=== PATIENT | male | born 1945 | race Caucasian/White ===

== ENCOUNTER 2022-04-26 08:24 | Outpatient (CLI) | payer MEDICARE, SELFPAY ==
--- NOTE | 2022-04-26 09:45 | W.ANESCHARGE ---
Anesthesia Charges Start Date/Time Anesthesia Start Date: 04/26/22 Anesthesia Start Time: 09:21 Stop Date/Time Anesthesia Stop Date: 04/26/22 Anesthesia Stop Time: 10:01 Summary Emergency: No Extremes of Age: Over 70-CPT [id number]
--- NOTE | 2022-04-26 10:03 | W.ANESCHARGE ---
Anesthesia Charges Start Date/Time Anesthesia Start Date: 04/26/22 Anesthesia Start Time: 09:21 Stop Date/Time Anesthesia Stop Date: 04/26/22 Anesthesia Stop Time: 10:01 Summary Emergency: No
== END 2022-04-26 08:25 | disposition home or self-care (01) ==
PROVIDERS: PCP Family Medicine; Visit Provider Internal Medicine Gastroenterology
DX: D50.9 Iron deficiency anemia, unspecified (principal); R10.13 Epigastric pain; K44.9 Diaphragmatic hernia without obstruction or gangrene; K31.89 Other diseases of stomach and duodenum; K21.9 Gastro-esophageal reflux disease without esophagitis; K22.89 Other specified disease of esophagus
CPT/HCPCS: 00813; 43239; 45378; 88305; 99100; J2704; J3490

== ENCOUNTER 2022-09-29 11:31 | Outpatient (CLI) | payer MEDICARE, SELFPAY ==
[2022-09-29 11:37] VITALS: BP 148/82; PULSE 79; RESP 16; O2SAT 95
[2022-09-29] MEDS: TETRACAINE 0.5% OPHTH 1 DROP EYE-RIGHT ×2 (11:57→12:00)
[2022-09-29] MEDS: BRIMONIDINE TARTRATE 0.2% OPHTH 1 DROP EYE-RIGHT ×2 (11:57→12:53)
--- NOTE | 2022-09-29 12:54 | P.PCN_ITS ---
Procedure Note Date Seen: 09/29/22 Will [facility] bill your pro fee for this procedure?: No Pre-op diagnosis: opacified lens capsule od Post-op diagnosis: same Procedure: yag pc od Procedure Description: dilated topical cruciform cpasulotomy 47@2.4 mj no complications
== END 2022-09-29 12:54 | disposition home or self-care (01) ==
LOC: EYE PRC 11:32
PROVIDERS: PCP Family Medicine; Visit Provider Ophthalmology
DX: H26.9 Unspecified cataract (principal)
CPT/HCPCS: 66821; A9270

== ENCOUNTER 2024-08-27 00:14 | Emergency (ER) | payer MEDICARE, SELFPAY ==
--- OUTSIDE RECORDS SUMMARY | 2024-08-27 00:17 | XMS_ITS | Clinical Summary ---
Author Organization [facility] Address [address] [place] [address] Care Team Providers Care Plaster Model And Mold Maker Name Role Phone Votel, Rohit Acosta MD Primary Care Provider + Prieto Larsen MD Unavailable Jose Israel MD Unavailable [phone] Allergies Active Allergy Reactions Criticality Noted Date Comments Lisinopril Throat Swelling/Closing 07/08/2008 Medications ASPIRIN 81 MG TAB, DELAYED RELEASE take 1 tablet (81 mg) by oral route once daily 0 007 Active Geriatric Multivitamins-Min (MULTI-VIT 55 PLUS) Tab Take by mouth. 0 011 Active medication order composer Super joint support, takes 2 capsules twice daily 0 021 Active medication order composer Revolution-D advanced vitamin D with cofactors, Takes 1 capsule twice daily 0 021 Active medication order composer Acid relief 360, takes 2 capsules once per day 0 021 Active medication order composer Berberibe XTS support for glucose levels and cardiovascular health, takes 1 capsule in the am and 1 capsule in the pm. 0 021 Active blood-glucose meterIndications:Predi abetes Dispense meter covered by pt ins. R73.03. Test 2-3 times per week. 1 Kit 023 Active CPAPIndications:WALLACE (obstructive sleep apnea) CPAP machine for home use at pressure: 6-16 cmw , Heated humidifier x 1 q 5 yr, Humidifier chamber x 1 q 6 mo, Full face mask x1 q 3mos, with cushion x 1 q mo, Heated tubing x 1 q 3 mo, Headgear x 1 q 6 mo, Filters: Disposable x 2 q mo non-disposable filters x1 q 6mo, Length of Need: 99 months, Frequency of use: Daily 1 Each 024 Active fluticasone (50 mcg per actuation) nasal solution (FLONASE)Indications:E TD (Eustachian tube dysfunction), bilateral Inhale 1 Wilson into affected nostril(s) two times daily. 16 g 2 024 Active allopurinoL (ZYLOPRIM) 300 mg tabletIndications:Gout , unspecified cause, unspecified chronicity, unspecified site Take 1 Tablet (300 mg) by mouth once daily. 90 Tablet 3 025 Active blood sugar diagnostic (Blood Glucose Test) stripIndications:Predi abetes Dispense item covered by pt ins. R73.03 Test 2-3 times per week. 100 Each 025 Active gemfibroziL (LOPID) 600 mg tabletIndications:Pure hypercholesterolemia Take 1 Tablet (600 mg) by mouth two times daily before meals. 180 Tablet 025 Active lancets (Microlet Lancet)Indications:Pre diabetes TEST 2-3 TIMES PER WEEK. 100 Each 025 Active metoprolol succinate (TOPROL XL) 100 mg Sustained-Release tabletIndications:Esse ntial hypertension Take 1 Tablet (100 mg) by mouth once daily. 90 Tablet 025 Active NIFEdipine ER (ADALAT CC) 60 mg extended-release tabletIndications:Esse ntial hypertension TAKE 1 TABLET BY MOUTH DAILY BEFORE A MEAL. 90 Tablet 025 Active hydroCHLOROthiazide 25 mg tabletIndications:Esse ntial hypertension Take 1 Tablet (25 mg) by mouth once daily. 90 Tablet 3 025 Active hydroCHLOROthiazide (HCTZ) 25 mg tabletIndications:Esse ntial hypertension Take 1 Tablet (25 mg) by mouth once daily. 90 Tablet 3 024 2024 Disconti nued(Reo rder (E-cance l not sent)) Active Problems Problem Noted Date Diagnosed Date Skin cancer 05/23/2023 Overview (05/23/2023): 02/03/2023 Posterior base of neck, Basal cell carcinoma, superficial and nodular types: Excised 03/08/2023 Mauricio Pulmonary nodule, repeate Ct Chest in Mar 2021 1 Prostate cancer 05/10/2018 Morbid obesity with BMI of 45.0-49.9, adult 10/2017 Hydrocele in adult 05/10/2018 Prediabetes 04/24/2015 Hydrocele, left 05/07/2014 CTS (carpal tunnel syndrome) 12/13/2012 GERD (gastroesophageal reflux disease) 3 Overview (06/13/2012): EGD 06/2012 severe reflux with scarring Colon polyp 04/08/2011 Overview (04/26/2022): Colonoscopy 04/2011 hyperplastic polyp repeat in 10 years Colonoscopy 04/2022 normal, repeat in 10 years, propofol Gout, unspecified 05/21/2009 Unspecified essential hypertension 04/05/2007 Pure hypercholesterolemia 04/05/2007 Resolved Problems Problem Noted Date Diagnosed Date Resolved Date Depression, recurrent 01/28/20222022 Psoriatic arthritis 11/30/2012 08/08/19 22 Encounters Date Type Department Care Team Description 08/24/2024 Nurse Triage [facility] [address] [place] [address] Rohit Stern MD High Blood Pressure 08/22/2024 11:00 AM CDT Nurse/Clinic Staff Only [facility] [address] [place] [address] Blood Pressure 08/22/2024 Telephone [facility] [address] [place] [address] Rohit Stern MD Blood Pressure 08/22/2024 Travel 08/07/2024 Telephone [facility] [address] [place] [address] Rohit Stern MD Medication Management 07/18/2024 9:35 AM WHEEL INSTALLER Office Visit [facility] [address] [facility] [place] [address] Votel, Rohit Acosta MD Medication Management (Wants labs, diuretic does not work for him, wants to discuss wegovy) 07/18/2024 Travel 07/13/2024 Travel 07/13/2024 Refill [facility] [address] [facility] [place] [address] Votel, Rohit Acosta MD Refill Request (Microlet Lancet) from Last 3 Months Immunizations Immunization Administration Dates Next Due COVID-19 vaccine ([employer] 30mcg/0.3mL) MD STEFANOV 04/01/2021,08/19/2020,07/29/2020 Influenza A (H1N1), Inactiva nahid (Age >=3 Years) 06/05/2009 Influenza Virus, Unspecified 02/04/2011 Influenza, High-dose Inactivated 04/26/2016,04/06 Influenza, IIV3 (Age >=3 years) 03/06/20 13,02/24/2012,03/06/2010,2008 Influenza, IIV4 04/22/2014,02/14/2013 Influenza, Inactivated AIIV4 (Age 65+ Years) Preserv Free 02/27/2023,03/21/2022,03/03/2021,2019 Influenza, Inactivated IIV3 (Age 65+ Years) Preserv Free 01/26/2024,04/03/2019,05/10/2018,2016 Pneumococcal Poly,23-Valent (Pneumovax) 03/15/2016,04/24/2015 Pneumococcal conj 13-Valent (Prevnar 13) 04/22/2014 Td (Age >=7 Years) 03/30/2006 Tdap 03/28/2012 Zoster (Zostavax-ZVL, live) 04/24/2013 Family History Medical History Relation Name Comments Other Father age 89, jane d a swallowing problem Heart Disease Maternal Grandmother i n her 90's Heart Disease Mother Relation Name Status Comments Father Maternal Grandmother Mother Alive Social History Tobacco Use Types Packs/Day Years Used Date Smoking Tobacco: Former Cigarettes 2 20 1 968 - 06/06/1987 Smokeless Tobacco: Never Tobacco Cessation:Counseling Given: Yes Alcohol Use Standard Drinks/Week Comments Yes 6.7 (1 standard drink = 0.6 oz p ure alcohol) occ PHQ-2 Answer Date Recorded PHQ-2 TOTAL SCORE 0 07/18/2024 Social Connections Answer Date Recorded Do you often feel lonely or isolated from those around you? 0 07/13/2024 Financial Resource Strain Answer Date R ecorded Difficulty of Paying Living Expenses 3 07/13/2024 Difficulty of Paying Living Expenses Not on file 07/13/2024 Food Insecurity Answer Date Recorded Do you worry your food will run out before you are able to buy more? 1 07/13/2024 Transportation Needs Answer Date Record ed Does lack of transportation keep you from medica l appointments? 1 07/13/2024 Does lack of transportation keep you from work, meetings or getting things that you need? 1 07/13/2024 Housing Stability Answer Date Recorded What is your housing situation today? 1 07/13/2024 Utilities Answer Date Recorded Do you have trouble paying f or utilities (for example, heat, electricity, water, phone)? 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 Not on file Not on file Obstetrics History Last Filed Vital Signs Vital Sign Reading Time Taken Comments Blood Pressure 142/74 08/22/2024 11:18 AM CDT Ma nual BP Pulse 72 08/22/2024 11:15 AM CDT Temperature 36.8 C (98.2 F) 09/30/2022 3:58 PM CDT Respiratory Rate 20 02/02/2021 7:58 AM CDT Oxygen Saturation 95% 08/22/2024 11:15 AM CDT Inhaled Oxygen Concentration - - Weight 151.7 kg (334 lb 8 oz) 07/18/2024 9:49 AM WHEEL INSTALLER Height 181.8 cm (5' 11.58) 07/18/2024 9:[address] Body Mass Index 45.91 07/18/2024 9:49 AM WHEEL INSTALLER Plan of Treatment Upcoming Encounters Date Type Department Care Team (Late st Contact Info) Description 10/24/2024 10:00 AM CDT Orders Only [facility] [address] [place] [address] Lab, [facility] Maintenance Due Date Last Done Comments Zoster (shingles) series for age 50+ (1 of 2) 06/19/2013 04/24/2013 Tetanus booster 03/28/2022 03/28/2012, 03/30/2006 RSV vaccine for adults or (1 - 1-dose 75+ series) 2022 COVID-19 vaccine series ( season) 2024 04/01/2021, 08/19/2020, 07/29/2020 Medicare Wellness for age 65+ 02/02/2025, 09/30/2022, 08/05/2021, Additional history exists BMI (ht and wt on same day) for age 18+ 07/18/2025 07/18/2024, 10/11/2023, 08/23/2023, Additional history exists Depression screening for age 12+ 07/18/2025 07/18/2024, 02/02/2024, 09/30/2022, Additional history exists Tdap Completed 03/28/2012 Pneumococcal series for age 50+ Completed 03/15/2016, 04/24/2015, 04/22/2014 Hepatitis C screening for ag e 18-79 Completed 04/26/2016, 10/25/2012 Influenza Vaccine Completed 01/26/2024, , 03/21/2022, Additional history exists Procedures Procedure Name Priority Date/Time Associated Diagnosis Comments CBC WITH AUTO DIFFERENTIAL Routine 07/18/2024 11:02 AM WHEEL INSTALLER Essential hypertension BASIC METABOLIC PANEL Routine 07/18/2024 11:02 AM WHEEL INSTALLER Essential hypertension PSA TOTAL Routine 07/18/2024 11:02 AM WHEEL INSTALLER Malignant neoplasm of prostate (HC) HEMOGLOBIN A1C MONITORING (POCT) Routine 07/18/2024 11:01 AM WHEEL INSTALLER Prediabetes ANTI HCV Routine 04/26/2016 10:22 AM WHEEL INSTALLER Need for hepatitis C screening test from Last 3 Months or Most Recently Relevant to Health Maintenance Results * CBC AND DIFFERENTIAL (07/18/2024 11:02 AM WHEEL INSTALLER) WHITE BLOOD CELL COUNT 9.2 3.8 - 10.8 Thousand/u L [facility] RED BLOOD CELL COUNT 4.64 4.20 - 5.80 Million/uL [facility] HEMOGLOBIN 14.9 13.2 - 17.1 g/dL [facility] HEMATOCRIT 43.8 38.5 - 50.0 % [facility] MCV 94.4 80.0 - 100.0 fL [facility] MCH 32.1 27.0 - 33.0 pg [facility] MCHC 34.0 32.0 - 36.0 g/dL [facility] Comment: For adults, a slight decrease in the calculated MCHC value (in the range of 30 to 32 g/dL) is most likely not clinically significant; however, it should be interpreted with caution in correlation with other red cell parameters and the patient's clinical condition. RDW 13.4 11.0 - 15.0 % [facility] PLATELET COUNT 283 140 - 400 Thousand/u L [facility] MPV 10.8 7.5 - 12.5 fL [facility] ABSOLUTE NEUTROPHILS 6,376 1,500 - 7,800 cells/uL [facility] ABSOLUTE LYMPHOCYTES 1,785 850 - 3,900 cells/uL [facility] ABSOLUTE MONOCYTES 672 200 - 950 cells/uL [facility] ABSOLUTE EOSINOPHILS 294 15 - 500 cells/uL [facility] ABSOLUTE BASOPHILS 74 0 - 200 cells/uL [facility] NEUTROPHILS 69.3 % [facility] LYMPHOCYTES 19.4 % [facility] MONOCYTES 7.3 % [facility] EOSINOPHILS 3.2 % [facility] BASOPHILS 0.8 % [facility] Blood BLOOD SPECIMEN / Unknown 07/18/2024 11:02 AM WHEEL INSTALLER 07/18/2024 11:02 AM WHEEL INSTALLER Rohit Stern MD HEMATOLOGY Final Re sult Performing Organization Address [facility] Co de Phone Number [employer] [facility] [address] [place] [address], [place] [phone] [facility] [address] [place] [address] * (ABNORMAL) PSA TOTAL (DIAG OR SCREEN) (07/18/2024 11:02 AM WHEEL INSTALLER) PSA, TOTAL 4.83(H) < OR = 4.00 ng/mL [facility] Comment: The total PSA value from this assay system is standardized against the WHO standard. The test result will be approximately 20% lower when compared to the equimolar-standardized total PSA (Melvin Austin). Comparison of serial PSA results should be interpreted with this fact in mind. This test was performed using the Siemens chemiluminescent method. Values obtained from different assay methods cannot be used interchangeably. PSA levels, regardless of value, should not be interpreted as absolute evidence of the presence or absence of disease. Blood BLOOD SPECIMEN / Unknown 07/18/2024 11:02 AM WHEEL INSTALLER 07/18/2024 11:02 AM WHEEL INSTALLER Rohit Stern MD CHEMISTRY Final Re sult Performing Organization Address [facility] Co de Phone Number [employer] [facility] [address] [facility] [place] [address], [place] [phone] [facility] [address] [place] [address] * (ABNORMAL) BASIC METABOLIC PANEL (07/18/2024 11:02 AM WHEEL INSTALLER) GLUCOSE 107(H) 65 - 99 mg/dL [facility] Comment: Fasting reference interval For someone without known diabetes, a glucose value between 100 and 125 mg/dL is consistent with prediabetes and should be confirmed with a follow-up test. UREA NITROGEN (BUN) 22 7 - 25 mg/dL [facility] CREATININE 1.09 0.70 - 1.28 mg/dL [facility] EGFR 70 > OR = 60 mL/min/1. 73m2 [facility] BUN/CREATININE RATIO SEE NOTE: 6 - 22 (calc) [facility] Comment: Not Reported: BUN and Creatinine are within reference range. SODIUM 140 135 - 146 mmol/L [facility] POTASSIUM 4.1 3.5 - 5.3 mmol/L [facility] CHLORIDE 101 98 - 110 mmol/L [facility] CARBON DIOXIDE 27 20 - 32 mmol/L [facility] ELECTROLYTE BALANCE 12 7 - 17 mmol/L (calc) [facility] CALCIUM 10.1 8.6 - 10.3 mg/dL [facility] Blood BLOOD SPECIMEN / Unknown 07/18/2024 11:02 AM WHEEL INSTALLER 07/18/2024 11:02 AM WHEEL INSTALLER Rohit Stern MD CHEMISTRY Final Re sult [employer] [facility] [address] [place] [address], [facility] [address] [place] [phone] * POCT Hemoglobin A1C Monitoring (07/18/2024 11:01 AM WHEEL INSTALLER) POC HEMOGLOBIN A1C 5.9 <6.0 % OF TOTAL HGB [facility] Comment: Any point of care results exhibiting inconsistency with the patient's clinical status should be repeated using a different testing method. Blood BLOOD SPECIMEN / Unknown 07/18/2024 11:01 AM WHEEL INSTALLER 07/18/2024 11:01 AM WHEEL INSTALLER Rohit Stern MD CHEMISTRY Final Re sult [facility] [address] [place] [address], [facility] [address] [place] [address] * ANTI HCV (04/26/2016 10:22 AM WHEEL INSTALLER) HEPATITIS C ANTIBODY Non-Reacti ve Non-Reacti ve 04/26/2016 5:59 PM WHEEL INSTALLER [facility] Blood BLOOD SPECIMEN / Unknown Butterfly / Unknown 04/26/2016 10:22 AM WHEEL INSTALLER 04/26/2016 10:22 AM WHEEL INSTALLER Narrative [facility] - 04/26/2016 5:59 PM WHEEL INSTALLER Antibodies to HCV not detected; does not exclude the possibility of exposure to HCV. us Rohit Stern MD SEND OUTS Final Re sult [facility] [address] [place] [address], [place] from Last 3 Months or Most Recently Relevant to Health Maintenance Insurance MEDICARE PART B HB ONLY [employer] BLUE HB ONLY [place] MEDICARE ADVANTAGE MR Advance Directives * Full Code (Latest Code Status on File) Date Activated Date Inactivated Comments 08/24/2018 10:48 AM 08/24/2018 2:36 PM Care Teams Plaster Model And Mold Maker Relationship Specialty Start Date End Date Votel, Rohit Acosta MD [address] [place] [address] PCP - General 06/11/04 Prieto Larsen MD [address] [place] [address] Urology Surgery - Urology 03/30/11 Jose Israel MD [address] [place] [address] Rheumatology Rheumatology 05/26/20
--- OUTSIDE RECORDS SUMMARY | 2024-08-27 00:17 | XMS_ITS | Continuity of Care Document ---
Author Organization [place] Taisha menon, [facility] Address [address] [place] [address] Care Team Providers Care Dental Technology Advisor Name Role Phone VOTELPRINCESS Primary Care Provider Assessment No assessment recorded. Plan of Treatment Reminders Order Date Submit Date Provider Last Modified By Organization Details Last Modified Time Details Appointments ESTABL ISHED 10 2024 02:40P Dillon Blevins MD Not available Not available Not available Lab PSA, serum or plasma 2024 025 shauna [facility], [address], [place], [address], 07/24/2024 15:41:47 PSA, total, serum or plasma - PLEASE CALL PT TO SCHEDU LE 2024 025 [facility], [address] [facility], [place], [address], 07/31/2024 08:50:34 Referral None record ed. Procedures None record ed. Surgeries None record ed. Imaging None record ed. Medication Orders Gemtes a 75 mg tablet 2024 025 shauna [id number], [id number], [place], [address], 07/24/2024 15:50:28 Patient TargetsNo targets recorded. Patient InstructionsNo instructions recorded. Reason for Referral None Reported. Results Created Date Observation Date Name Description Value Unit Range Abnormal Flag Note LastModifiedBy Organization Detail LastModifiedTime 07/24/1907/24/2024 PSA, serum or plasm a PSA 7.1 NG/ML 0-4.0 NG/mL Not Available [facility] [address], [place], [address], 07/24/2024 14:56:13 Result Notes None recorded. 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 Procedures Surgical History Date Name Laterality Status Provider Name and Address Organization Details Recorded Time 07/24/19 25 OFFICE SUPERVISOR/blood draw completed Treasure Manning [facility] 07/24/2024 14:56:09 06/15/19 24 Blood Draw/OFFICE SUPERVISOR/PSA RESULTS completed Jas Blevins MD [address] [facility],[address], [place], [address] 06/15/2023 10:51:48 02/22/20 23 Blood Draw/OFFICE SUPERVISOR/PSA RESULTS completed Selma Bush [facility] 02/21/2023 14:53:19 04/26/20 22 Colonoscopy completed Selma Bush [facility] 05/03/2022 10:21:07 Imaging Results None recorded. Procedure Notes None recorded. Medical Equipment None Reported. Allergies Allergen ID Allergen Name Allergen Category Reaction Reaction Severity Criticality Documentation Date Start Date Code Code System Note Provider Name and Address Organization Details Recorded Time 878917 lisinopri l medicatio n Not available Not available Not available 11/22/20192014 45473 RxNorm Not Available Not Available Not Available Medications Name Sig Start Date Stop Date Status Note LastModified by Organization Details LastModified Time trazodone 50 mg tablet TAKE 1 TABLET (50 MG) BY MOUTH AT BEDTIME IF NEEDED FOR SLEEP. 05/03 completed Not Available Not Available Not Available fluorouraci l 5 % topical cream APPLY TO AFFECTED AREAS TOPICALLY TWO TIMES DAILY 05/03 completed Not Available Not Available Not Available metoprolol succinate ER 100 mg tablet,exte nded release 24 hr TAKE ONE TABLET BY MOUTH EVERY DAY active Not Available Not Available No t Available terbinafine HCl 250 mg tablet TAKE ONE TABLET BY MOUTH EVERY DAY active Not Available Not Available No t Available nifedipine ER 60 mg tablet,exte nded release 24 hr TAKE 1 TABLET BY MOUTH EVERY DAY BEFORE A MEAL 02/21 completed Not Available Not Available Not Available gemfibrozil 600 mg tablet TAKE ONE TABLET BY MOUTH TWICE A DAY BEFORE MEALS active Not Available Not Available No t Available diclofenac sodium 75 mg tablet,jessica yed release TAKE 1 TABLET BY MOUTH TWICE A DAY WITH MEALS 05/03 completed Not Available Not Available Not Available allopurinol 300 mg tablet TAKE ONE TABLET BY MOUTH EVERY DAY active Not Available Not Available No t Available hydrochloro thiazide 25 mg tablet TAKE ONE TABLET BY MOUTH EVERY DAY active Not Available Not Available No t Available methylpredn isolone 4 mg tablets in a dose pack TAKE 6 TABLETS ON DAY 1 DIRECTED ON PACKAGE AND DECREASE BY 1 TAB EACH DAY FOR A TOTAL OF 6 DAYS 08/18 completed Not Available Not Available Not Available ketoconazol e 2 % topical cream APPLY TO AFFECTED AREA(S) TWO TIMES A DAY UNTIL RASH CLEARS active Not Available Not Available No t Available nifedipine ER 60 mg tablet,exte nded release TAKE ONE TABLET BY MOUTH EVERY DAY BEFORE A MEAL active Not Available Not Available No t Available fluticasone propionate 50 mcg/actuati on nasal spray,suspe nsion INHALE 1 SPRAY INTO AFFECTED NOSTRIL(S ) TWO TIMES A DAY active Not Available Not Available No t Available Microlet Lancet TEST 2-3 TIMES PER WEEK. active Not Available Not Available No t Available GaviLyte-G 236 gram-22.74 gram-6.74 gram-5.86 gram oral solution DRINK 2 LITERS THE DAY BEFORE COLONOSCO PY AND DRINK 2 LITERS 6 HOURS BEFORE COLONOSCO PY APPOINTME NT 05/03 completed Not Available Not Available Not Available Contour Next Test Strips USE TO TEST 2 TO 3 TIMES PER WEEK active Not Available Not Available No t Available Contour Next Meter DISPENSE METER COVERED BY PT INS. R73.03. TEST 2-3 TIMES PER WEEK. active Not Available Not Available No t Available Gemtesa 75 mg tablet Take 1 tablet every day by oral route. 2024 active Not Available Not Available Not Avai lable aspirin 81 mg capsule Take 1 capsule every day by oral route. active Not Available Not Available No t Available Flowflex COVID-19 Antigen Home Test kit USE TO TEST DIRECTED 02/21 completed Not Available Not Available Not Available Vitals Date Recorded Body height Body mass index (BMI) Body weight Provider Name and Address Organization Details Last Updated DateTime 07/24/2024 182.88 cm 44.8 kg/m2 801304.48 g Treasure [facility] 07/24/2024 14:55:44 Social History Question Answer Notes LastModified by Organizat ion Details LastModified Time Tobacco Smoking Status [facility] 10:21:52 What Is Your Level Of Alcohol Consumption? Moderate [email or web address] Information not available 05/03/2022 What Is Your Level Of Caffeine Consumption? Moderate Information not available 05/03/2022 When Did You Quit Smoking? 16+yearssince lastcigarette [email or web address] Information not available 05/03/2022 Race White Information no t available 12/19/2023 Ethnicity Not /Lati no Information not available 12/19/2023 Preferred Language French Information not available 12/19/2023 What Was The Date Of Your Most Recent Tobacco Screening? 07/24/2024 [email or web address] Information not available 07/24/2024 Do You Use Any Illicit Or Recreational Drugs? No [email or web address] Information not available 05/03/2022 Has Tobacco Cessation Counseling Been Provided? No Information not available 08/18/2022 Do You Or Have You Ever Used Any Other Forms Of Tobacco Or Nicotine? No Information not available 08/18/2022 Sex: Unknown Functional Status None recorded. Mental Status None recorded. Family History Relationship Description Onset Age of this Age Resolved Age Notes LastModified by Organization Details LastModified Time Father No current problems or disability Not available 12/18 16:40:53 Mother No current problems or disability Not available 12/18 16:40:53 Medical History Condition Response High Blood Pressure Y Cancer Y GERD/Acid Reflux Y High Cholesterol Y Immunizations Vaccine Type Date Status Note Provider Nam e and Address Organization Details Recorded Time pneumococcal polysaccharide PPV23 5 completed Selma Bush [facility], [facility] 05/03/2022 10:19:31 Pneumococcal conjugate PCV 13 4 completed Selma Bush [facility] 05/03/2022 10:19:31 pneumococcal [facility] P[facility] 02/21/2023 14:52:08 Influenza, adjuvanted, trivalent, PF 9 [facility] 02/21/2023 14:52:08 Influenza, adjuvanted, trivalent, PF 7 completed [place]ma Bush [facility] 02/21/2023 14:52:08 Influenza, adjuvanted, trivalent, PF 8 [facility] 02/21/2023 14:52:08 Influenza, adjuvanted, quadrivalent, PF 0 [facility] 02/21/2023 14:52:08 Influenza, adjuvanted, quadrivalent, PF 1 completed [facility] 14:52:08 Influenza, adjuvanted, quadrivalent, PF 2 completed [facility] 02/21/2023 14:52:08 COVID-19, mRNA, LNP-S, PF, 30 mcg/0.3 mL dose 1 completed [facility] 02/21/2023 14:52:08 COVID-19, mRNA, LNP-S, PF, 30 mcg/0.3 mL dose 1 completed Selma Bush null, [facility] 02/21/2023 14:52:08 COVID-19, mRNA, LNP-S, PF, 30 mcg/0.3 mL dose 1 completed Selma Bush null, [facility] 02/21/2023 14:52:08 Tdap 2 completed [place] null, [facility] 02/21/2023 14:52:08 Novel Ktutymxso-[id number], all formulations 9 completed Selma Bush null, [facility] 02/21/2023 14:52:08 zoster live 3 completed [place] Bush null, [facility] 02/21/2023 14:52:08 Influenza, high-dose, trivalent, PF 5 completed [place] [facility], [facility] 02/21/2023 14:52:08 Influenza, high-dose, trivalent, PF 6 completed [place] Bush null, [facility] 02/21/2023 14:52:08 Influenza, split virus, trivalent, preservative 2 completed [place] Bush null, [facility] 02/21/2023 14:52:08 Influenza, split virus, trivalent, preservative 1 completed [place] Bush null, [facility] 02/21/2023 14:52:08 Influenza, split virus, trivalent, preservative 3 completed [place] Bush null, [facility] 02/21/2023 14:52:08 Influenza, split virus, trivalent, PF 9 completed [place] Bush null, [facility] 02/21/2023 14:52:08 Influenza, split virus, quadrivalent, PF 3 completed [place] null, [facility] 02/21/2023 14:52:08 Influenza, split virus, quadrivalent, PF 4 completed [place] Bush null, [facility] 02/21/2023 14:52:08 Past Encounters Encounter ID Performer Location Encounter Start Date Encounter Closed Date Diagnosis/Indication Diagnosis SNOMED-CT Code Diagnosis ICD10 Code Diagnosis Note [id number] Jas Blevins MD [facility] [address] [place] [phone] 07/24/2024 14:46:22 07/27/2024 10:24:34 Carcinoma of prostate 513476209 C61 1. Prostate cancer- T1c - [place] 3+3 = 6 - (1 core on Right) - dx April 2018- on expectant management - unable to perform MRI (due to body habitus)- PSA (7.1) - increased (varies by lab)(PSA - 4.83 (07/19/24) - at [facility])- Follow-up in 3 months with PSA (at [facility])(if PSA increases - recommend repeat TRUS bx of the prostate) Increased frequency of urination 331942973 R35.0 2. Urinary frequency- try Gemtesa 75 mg daily Health Concerns Section Related Observation LastModified by Organization Detai ls LastModified Time None Recorded Concern Status LastModified by Organization Details LastModified Time None Recorded Payers Encounter Date Sequence Insurance Name Policy Number Policy Nielson Covered Member ID Nielson Member ID Guarantor Name 07/24/2024 1 [place] MEDICARE COST [id number] Oskar Gifford [id number] Oskar Gifford Notes Date Note Type Note Provider Name and Address Organization Details Recorded Time 07/24/2024 text/html 79 yo male diagn osed with Prostate cancer - T1c - [place] 3+3 = 6 - (1/6 cores on Right - 5% - no perineural invasion) on 04/20/18- on Expectant management.UroNav bx (04/20/18) - 66 gm - prostate cancer- [place] 3+3 = 6 - Right apex - (5%) - no perineural invasion- BRIANNA - Left base and mid-gland- High grade PIN - Right mid-glandTRUS bx (Jul 2010) - ASAPTRUS bx (August 2014) - benignSaturation TRUS bx (September 2015) - ASAPTRUS bx (04/20/18) - Right - [place] 3+3 = 6 (1/6 cores - 5%)Exactvu Prostate bx (07/19/19) - all biopsies were benign.06/15/23 - He presents for follow-up on Prostate cancer. He voids every 2-3 hours during the day and 1x/night. 12/19/23-He presents for follow-up on Prostate cancer. He reports no change in urination. 07/24/24 - He presents for follow-up on Prostate cancer. He reports more urinary frequency / urgency. He voids every 1 hour during the day and 1x/night. He reports significant caffeine intake (soda).- PSA - 4.83 (07/18/24) - [facility]- PSA - 7.1 (07/24/24) ____PSA - 3.70 (08/19/15) - 4.06 (12/28/19)- 3.48 (12/23/15) - 4.01 (03/28/20)- 3.16 (06/30/16) - 3.90 (07/22/20)- 6.3 (07/27/17) - 4.20 (11/04/20)- 4.6 (09/07/17) - 5.09 (01/28/21)- 5.0 (03/08/18) - 4.93 (05/21/21)- 3.26 (06/19/18) - 4.85 (08/03/21)- 3.67 (09/20/18) - 3.85 (01/26/22)- 3.61 (12/26/18) - 4.12 (05/10/22)- 3.17 (02/08/19) - 4.4 (08/16/22)- 5.76 (04/03/19) - 6.0 (02/21/23) - sex- 3.40 (07/02/19) - 7.1 (06/15/23) - sex - 3.47 (06/28/23)- 6.1 (12/19/23)- 3.50 (03/19/24)- 4.83 (07/18/24)- 7.1 (07/24/24) Prostate MRI (03/15/18) - 64 gm- Lesion #1 - (PI-RADS 4) - 6 mm - Left apex - 4-5 o'clock Jas Blevins MD [address] [facility],[address], [place], [address], [place] [facility] [place] [facility] 07/24/2024 17:56:03
--- OUTSIDE RECORDS SUMMARY | 2024-08-27 00:17 | XMS_ITS | Data Portability ---
Author Organization [facility] Ewalo gy, [facility] Address [address] [place] [address] Care Team Providers Care Shoder Filler Name Role Phone ANATEPRINCESS Talavera Primary Care Provider Assessment No assessment recorded. Plan of Treatment Reminders Order Date Submit Date Provider Last Modified By Organization Details Last Modified Time Details Appointments ESTABL ISHED 10 2024 02:40P Dillon Blevins MD Not available Not available Not available Lab PSA, serum or plasma 2024 025 [email or web address] [facility], [address], [place], [address], 07/24/2024 15:41:47 PSA, total, serum or plasma - PLEASE CALL PT TO NILE MORALES 2024 025 [email or web address] ro [facility], [address], [place], [address], 07/31/2024 08:50:34 PSA, serum or plasma 2023 024 [facility], [address], [place], [address], 12/19/2023 17:15:28 PSA, total, serum or plasma - Check PSA in 3 months (at [facility] ) - FOR OCTOBE R 2023 024 [email or web address] ro [facility], [address], [place], [address], 12/26/2023 12:50:29 PSA, serum or plasma 2023 024 [email or web address] [facility], [address] [place], [address], 06/15/2023 11:05:41 PSA, total, serum or plasma 2023 024 [email or web address] [facility], [address] [place], [address], 06/23/2023 10:03:49 PSA, serum or plasma 2022 023 [email or web address] [facility], [address] [place], [address], 02/21/2023 14:53:52 PSA, total, serum or plasma 2022 023 [email or web address] [facility], [address] [place], [address], 02/21/2023 15:48:20 PSA, total, serum or plasma 2022 023 [email or web address] [facility], [address] [place], [address], 08/18/2022 12:36:05 PSA, total, serum or plasma 2022 023 [email or web address] [facility], [address] [place], [address], 08/27/2022 09:15:24 Referral None record ed. Procedures None record ed. Surgeries None record ed. Imaging None record ed. Medication Orders Gemtes a 75 mg tablet 2024 025 [email or web address] [id number], [address], [place], [address], 07/24/2024 15:50:28 Patient TargetsNo targets recorded. Patient InstructionsNo instructions recorded. Reason for Referral None Reported. Results Created Date Observation Date Name Description Value Unit Range Abnormal Flag Note LastModifiedBy Organization Detail LastModifiedTime 02/22/2002/21/2023 PSA, serum or plasm a PSA 6.0ng/ mL 0-4.0 Not Available [facility] [address], [place], [address], 02/21/2023 14:53:34 06/15/19 24 06/15/2023 PSA, serum or plasm a PSA 7.1ng/ mL 0-4.0 Not Available [facility] [address], [place], [address], 06/15/2023 10:51:51 12/19/19 24 12/19/2023 PSA, serum or plasm a PSA 6.1 NG/ml 0-4.0 NG/mL Not Available [facility] [address], [place], [address], 12/19/2023 16:37:15 07/24/19 25 07/24/2024 PSA, serum or plasm a PSA 7.1 NG/ML 0-4.0 NG/mL Not Available [facility] [address], [place], [address], 07/24/2024 14:56:13 Result Notes None recorded. 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 Procedures Surgical History Date Name Laterality Status Provider Name and Address Organization Details Recorded Time 07/24/19 25 POULTRY BUYER/blood draw completed Treasure Manning [facility] 07/24/2024 14:56:09 06/15/19 24 Blood Draw/POULTRY BUYER/PSA RESULTS completed Jas Blevins MD [address] [facility] [address],[facility] [address], [place], [address], [facility] 06/15/2023 10:51:48 02/22/20 23 Blood Draw/POULTRY BUYER/PSA RESULTS completed Selma Bush [facility] 02/21/2023 14:53:19 04/26/20 22 Colonoscopy completed Selma Bush [facility] 05/03/2022 10:21:07 Imaging Results None recorded. Procedure Notes None recorded. Medical Equipment None Reported. Allergies Allergen ID Allergen Name Allergen Category Reaction Reaction Severity Criticality Documentation Date Start Date Code Code System Note Provider Name and Address Organization Details Recorded Time 781462 lisinopri l medicatio n Not available Not available Not available 11/22/20192014 13459 RxNorm Not Available Not Available Not Available [...] and Address Organization Details Last Updated DateTime 08/18/2022 182.88 cm 44.1 kg/m2 235696.52 g Jas Blevins MD [address] [facility] [address], [place], [address], [place] [facility] 08/18/2022 10:16:46 Date Recorded Body height Body mass index (BMI) Body weight Provider Name and Address Organization Details Last Updated DateTime 02/21/2023 182.88 cm 43.4 kg/m2 750067.56 g Selma Bush [facility] 02/21/2023 14:51:57 Date Recorded Body height Body mass index (BMI) Body weight Provider Name and Address Organization Details Last Updated DateTime 06/15/2023 182.88 cm 44.8 kg/m2 696314.48 g Jas Blevins MD [address] [place] [address],[address] 06/15/2023 10:50:35 Date Recorded Body height Body mass index (BMI) Body weight Provider Name and Address Organization Details Last Updated DateTime 12/19/2023 182.88 cm 44.8 kg/m2 011462.48 g Jas Blevins MD [address] [place] [address],[address] 12/19/2023 16:40:33 Date Recorded Body height Body mass index (BMI) Body weight Provider Name and Address Organization Details Last Updated DateTime 07/24/2024 182.88 cm 44.8 kg/m2 914797.48 g Treasure Manning [facility] 07/24/2024 14:55:44 Social History Question Answer Notes LastModified by Organizat ion Details LastModified Time Tobacco Smoking Status Former Smoker [facility]/2022 10:21:52 What Is Your Level Of Alcohol Consumption? Moderate [email or web address] Information not available 05/03/2022 What Is Your Level Of Caffeine Consumption? Moderate [email or web address] Information not available 05/03/2022 When Did You Quit Smoking? 16+yearssince lastcigarette Information not available 05/03/2022 Race White Information no t available 12/19/2023 Ethnicity Not /Lati no Information not available 12/19/2023 Preferred Language Swedish Information not available 12/19/2023 What Was The Date Of Your Most Recent Tobacco Screening? 07/24/2024 [email or web address] Information not available 07/24/2024 Do You Use Any Illicit Or Recreational Drugs? No [email or web address] Information not available 05/03/2022 Has Tobacco Cessation [...] History Condition Response High Blood Pressure Y GERD/Acid Reflux Y Cancer Y High Cholesterol Y Immunizations Vaccine Type Date Status Note Provider Nam e and Address Organization Details Recorded Time pneumococcal polysaccharide PPV23 5 completed Selma Zhenga [facility] 05/03/2022 10:19:31 Pneumococcal conjugate PCV 13 4 completed [facility]/2022 10:19:31 pneumococcal polysaccharide PPV23 6 completed Selma Zhenga [facility] 02/21/2023 14:52:08 Influenza, adjuvanted, trivalent, PF 9 completed Selma Zhenga [facility] 02/21/2023 14:52:08 Influenza, adjuvanted, trivalent, PF 7 completed Selma Zhenga [facility] 02/21/2023 14:52:08 Influenza, adjuvanted, trivalent, PF 8 completed [facility] 02/21/2023 14:52:08 Influenza, adjuvanted, quadrivalent, PF 0 completed Selma Bush [facility] 02/21/2023 14:52:08 Influenza, adjuvanted, quadrivalent, PF 1 completed [facility] 02/21/2023 14:52:08 Influenza, adjuvanted, quadrivalent, PF 2 completed [facility] 02/21/2023 14:52:08 COVID-19, mRNA, LNP-S, PF, 30 mcg/0.3 mL dose 1 completed Selma Bush null, [facility] 02/21/2023 14:52:08 COVID-19, mRNA, LNP-S, PF, 30 mcg/0.3 mL dose 1 completed Selmalucinda Vicenteoza null, [facility] 02/21/2023 14:52:08 COVID-19, mRNA, LNP-S, PF, 30 mcg/0.3 mL dose 1 completed Selma Bush null, [facility] 02/21/2023 14:52:08 Tdap 2 completed Selma Bush null, [facility] 02/21/2023 14:52:08 Novel Ixmopjquw-[id number], all formulations 9 completed [facility] 02/21/2023 14:52:08 zoster live 3 completed Selma Bush null, [facility] 02/21/2023 14:52:08 Influenza, high-dose, trivalent, PF 5 completed Selma Bush null, [facility] 02/21/2023 14:52:08 Influenza, high-dose, trivalent, PF 6 completed Selma Bush null, [facility] 02/21/2023 14:52:08 Influenza, split virus, trivalent, preservative 2 completed Selma Bush null, [facility] 02/21/2023 14:52:08 Influenza, split virus, trivalent, preservative 1 completed Selma Bush null, [facility] 02/21/2023 14:52:08 Influenza, split virus, trivalent, preservative 3 completed Selma Bush null, [facility] 02/21/2023 14:52:08 Influenza, split virus, trivalent, PF 9 completed Selma Bush null, [facility] 02/21/2023 14:52:08 Influenza, split virus, quadrivalent, PF 3 completed Selma Zhenga nathaniel, [place] [facility] 02/21/2023 14:52:08 Influenza, split virus, quadrivalent, PF 4 completed Selma Zhenga nathaniel, [place] [facility] 02/21/2023 14:52:08 Past Encounters Encounter ID Performer Location Encounter Start Date Encounter Closed Date Diagnosis/Indication Diagnosis SNOMED-CT Code Diagnosis ICD10 Code Diagnosis Note [id number] [place] [address] 05/03/2022 10:04:38 05/05/2022 09:49:25 Carcinoma of prostate 902374234 C61 1. Prostate cancer- T1c - Hermilo 3+3 = 6 - (1 core on Right) - dx April 2018- on expectant management - unable to perform MRI (due to body habitus)- PSA has been stable- check PSA in May ([facility])- Follow-up in 4-5 months with PSA ([facility]) [id number] MD UMESH GabrielAna [address] [place] [address] 08/18/2022 10:08:47 08/20/2022 13:31:00 Carcinoma of prostate 018937536 C61 1. Prostate cancer- T1c - Enochs 3+3 = 6 - (1 core on Right) - dx April 2018- on expectant management - unable to perform MRI (due to body habitus)- PSA (4.4) - increased, but stable- Follow-up in 6 months with PSA(recomm end Prostate MRI if PSA increases significan tly) [id number] [facility] [address] [place], [place] [address] 02/21/2023 14:35:58 02/28/2023 18:06:13 Carcinoma of prostate 979014954 C61 1. Prostate cancer- T1c - Hermilo 3+3 = 6 - (1 core on Right) - dx April 2018- on expectant management - unable to perform MRI (due to body habitus)- PSA (6.0) - had sex this morning- Follow-up in 3-4 months with PSA [id number] Jas Blevins MD [address] [place], [place] [address] 06/15/2023 10:39:40 06/23/2023 14:42:02 Carcinoma of prostate 036411004 C61 1. Prostate cancer- T1c - Enochs 3+3 = 6 - (1 core on Right) - dx April 2018- on expectant management - unable to perform MRI (due to body habitus)- PSA (7.1) - had sex 2 days ago- check PSA (1-2 week in [facility])- if PSA remains high - consider treatment or repeat TRUS bx of prostate [id number] Jas Blevins MD [address] [place] [address] 12/19/2023 15:53:01 12/26/2023 11:01:06 Carcinoma of prostate 705912400 C61 1. Prostate cancer- T1c - Enochs 3+3 = 6 - (1 core on Right) - dx April 2018- on expectant management - unable to perform MRI (due to body habitus)- PSA (6.1) - increased (may be due to Lab variation) (PSA - 3.47 (06/28/23) - at [facility])- check PSA in 3 months (at [facility]) [id number] Jas Blevins MD [address] [place], [place] [address] 07/24/2024 14:46:22 07/27/2024 10:24:34 Carcinoma of prostate [id number] C61 1. Prostate cancer- T1c - Hermilo 3+3 = 6 - (1 core on Right) - dx April 2018- on expectant management - unable to perform MRI (due to body habitus)- PSA (7.1) - increased (varies by lab)(PSA - 4.83 (07/19/24) - at [facility])- Follow-up in 3 months with PSA (at [facility])(if PSA increases - recommend repeat TRUS bx of the prostate) Increased frequency of urination 914481213 R35.0 2. Urinary frequency- try Gemtesa 75 mg daily Health Concerns Section Related Observation LastModified by Organization Detai ls LastModified Time None Recorded Concern Status LastModified by Organization Details LastModified Time None Recorded Advance Directives Directive None Recorded Payers Encounter Date Sequence Insurance Name Policy Number Policy Nielson Covered Member ID Nielson Member ID Guarantor Name 08/18/2022 1 [place] [id number] Oskar Dawson Balta [id number] Oskar Dawson Balta 02/21/2023 1 [place] [id number] Oskar Dawson Balta [id number] Oskar Dawson Balta 06/15/2023 1 [place] [id number] Oskar Dawson Balta [id number] Oskar Dawson Balta 12/19/2023 1 [place] [id number] Oskar Dawson Balta [id number] Oskar Dawson Balta 07/24/2024 1 [place] [id number] Oskar Dawson Balta [id number] Oskar Gifford Notes Date Note Type Note Provider Name and Address Organization Details Recorded Time 08/18/2022 text/html 77 yo male diagnosed with Prostate cancer - T1c - Hermilo 3+3 = 6 - (1/6 cores on Right - 5% - no perineural invasion) on 04/20/18 - on expectant management. UroNav bx (04/20/18) - 66 gm - prostate cancer- Enochs 3+3 = 6 - Right apex - (5%) - no perineural invasion- BRIANNA - Left base and mid-gland- High grade PIN - Right mid-gland TRUS bx (Jul 2010) - ASAPTRUS bx (August 2014) - benignSaturation TRUS bx (September 2015) - ASAPTRUS bx (04/20/18) - Right - Hermilo 3+3 = 6 (1/6 cores - 5%)Exactvu Prostate bx (07/19/19) - all biopsies were benign. 08/03/21 - He presents today for follow-up on prostate cancer - current on expectant management. He reports no change in urination. He voids every 2-3 hours during the day and 1-2x/night. He denies hesitancy, slow stream, or dysuria. 05/03/22 - He presents for follow-up on Prostate cancer. He denies any change in urination. He voids every 2-3 hours during the day and 1-2x/night - denies dysuria. 08/18/22 - He presents for follow-up on Prostate cancer. He voids every 2-3 hours during the day and 1x/night. He notes urgency - denies dysuria.- PSA - 4.4 (08/16/22) ____ PSA - 3.70 (08/19/15) - 4.06 (12/28/19)- 3.48 (12/23/15) - 4.01 (03/28/20)- 3.16 (06/30/16) - 3.90 (07/22/20)- 6.3 (07/27/17) - 4.20 (11/04/20)- 4.6 (09/07/17) - 5.09 (01/28/21)- 5.0 (03/08/18) - 4.93 (05/21/21)- 3.26 (06/19/18) - 4.85 (08/03/21)- 3.67 (09/20/18) - 3.85 (01/26/22)- 3.61 (12/26/18) - 4.12 (05/10/22)- 3.17 (02/08/19) - 4.4 (08/16/22)- 5.76 (04/03/19)- 3.40 (07/02/19) Prostate MRI (03/15/18) - 64 gm- Lesion #1 - (PI-RADS 4) - 6 mm - Left apex - 4-5 o'clock Jas Blevins MD [address] [facility],[address], [place], [address], [facility] 08/20/2022 12:28:24 02/21/2023 text/html 77 yo male diagn osed with Prostate cancer - T1c - Enochs 3+3 = 6 - (1/6 cores on [...] - ASAPTRUS bx (04/20/18) - Right - Enochs 3+3 = 6 (1/6 cores - 5%)Exactvu Prostate bx (07/19/19) - all biopsies were benign.08/18/22 - He presents for follow-up on Prostate cancer. He voids every 2-3 hours during the day and 1x/night. He notes urgency - denies dysuria. 02/21/23 - He presents for follow-up on Prostate cancer. He voids every 2-3 hours during the day and 1x/night- PSA - 6.0 (patient had sex this morning) ___PSA - 3.70 (08/19/15) - 4.06 (12/28/19)- 3.48 (12/23/15) - 4.01 (03/28/20)- 3.16 (06/30/16) - 3.90 (07/22/20)- 6.3 (07/27/17) - 4.20 (11/04/20)- 4.6 (09/07/17) - 5.09 (01/28/21)- 5.0 (03/08/18) - 4.93 (05/21/21)- 3.26 (06/19/18) - 4.85 (08/03/21)- 3.67 (09/20/18) - 3.85 (01/26/22)- 3.61 (12/26/18) - 4.12 (05/10/22)- 3.17 (02/08/19) - 4.4 (08/16/22)- 5.76 (04/03/19) - 6.0 (02/21/23)- 3.40 (07/02/19)Prostate MRI (03/15/18) - 64 gm- Lesion #1 - (PI-RADS 4) - 6 mm - Left apex - 4-5 o'clock Jas Blevins MD [address] [place] [address],[address], [place], [address], [facility] 02/21/2023 15:39:27 06/15/2023 text/html 77 yo male diagn osed with Prostate cancer - T1c - Enochs 3+3 = 6 - (1/6 cores on Right - 5% - no perineural invasion) on 04/20/18- on Expectant management.UroNav bx (04/20/18) - 66 gm - prostate cancer- Enochs 3+3 = 6 - Right apex - (5%) - no perineural invasion- BRIANNA - Left base and mid-gland- High grade PIN - Right mid-glandTRUS bx (Jul 2010) - ASAPTRUS bx (August 2014) - benignSaturation TRUS bx (September 2015) - ASAPTRUS bx (04/20/18) - Right - Hermilo 3+3 = 6 (1/6 cores - 5%)Exactvu Prostate bx (07/19/19) - all biopsies were benign.08/18/22 - He presents for follow-up on Prostate cancer. He voids every 2-3 hours during the day and 1x/night. He notes urgency - denies dysuria. 02/21/23 - He presents for follow-up on Prostate cancer. He voids every 2-3 hours during the day and 1x/night. 06/15/23 - He presents for follow-up on Prostate cancer. He voids every 2-3 hours during the day and 1x/night.- PSA - 7.1 PS A - 3.70 (08/19/15) - 4.06 (12/28/19)- 3.48 [...] sex- 3.40 (07/02/19) - 7.1 (06/15/23) - sexProstate MRI (03/15/18) - 64 gm- Lesion #1 - (PI-RADS 4) - 6 mm - Left apex - 4-5 o'clock Jas Blevins MD [address] [place] [address],[address], [place], [address], [facility] 06/15/2023 23:27:23 12/19/2023 text/html 78 yo male diagn osed with Prostate cancer [...] - ASAPTRUS bx (04/20/18) - Right - Enochs 3+3 = 6 (1/6 cores - 5%)Exactvu Prostate bx (07/19/19) - all biopsies were benign.08/18/22 - He presents for follow-up on Prostate cancer. He voids every 2-3 hours during the day and 1x/night. He notes urgency - denies dysuria. 02/21/23 - He presents for follow-up on Prostate cancer. He voids every 2-3 hours during the day and 1x/night. 06/15/23 - He presents for follow-up on Prostate cancer. He voids every 2-3 hours during the day and 1x/night. 12/19/23-He presents for follow-up on Prostate cancer. He reports no change in urination.- PSA - 6.1 PS A - 3.70 (08/19/15) - 4.06 (12/28/19)- 3.48 [...] (06/15/23) - sex - 3.47 (06/28/23)- 6.1 (12/19/23)Prostate MRI (03/15/18) - 64 gm- Lesion #1 - (PI-RADS 4) - 6 mm - Left apex - 4-5 o'clock Jas Blevins MD [address] [facility],[address], [place], [address], [place] - [facility] 12/19/2023 19:10:21 07/24/2024 text/html 79 yo male diagn osed with Prostate cancer - T1c - Hermilo 3+3 = 6 - (1/6 cores on Right - 5% - no perineural invasion) on 04/20/18- on Expectant management.UroNav bx (04/20/18) - 66 gm - prostate cancer- Enochs 3+3 = 6 - Right apex - (5%) - no perineural invasion- BRIANNA - Left base and mid-gland- High grade PIN - Right mid-glandTRUS bx (Jul 2010) - ASAPTRUS bx (August 2014) - benignSaturation TRUS bx (September 2015) - ASAPTRUS bx (04/20/18) - Right - Enochs 3+3 = 6 (1/6 cores - 5%)Exactvu [...] apex - 4-5 o'clock Jas Blevins MD [address] [place] [address],[address], [place], [address], [facility] 07/24/2024 17:56:03
[2024-08-27 00:21] VITALS: BP 175/102; RESP 16; TEMP 36.1; O2SAT 96; BMI 43.5
--- NOTE | 2024-08-27 00:33 | ED.GENADULT ---
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 Patient notes his blood pressures are now 170s over 100s over the past week. He is currently on nifedipine 60 mg extended release, metoprolol 100 mg extended release, and hydrochlorothiazide 25 mg daily. Patient notes that this all started because of urinary frequency. His primary at took him off hydrochlorothiazide to see if this would help. In the meantime he went to see a urologist who placed him on Gemtesa which she thought did help. During this time he also had cold and sinus infection type symptoms and saw ENT. At that time he was placed on Flonase and amoxicillin. He is currently still on both of those and while his symptoms have improved they have not gone away. He denies the use of any cough suppressants or other antihistamines. He denies a cough. Patient denies headache visual changes chest pain or cough. He states however he has more shortness of breath with activity. He is wondering about fluid retention as when he lays down he feels a pressure in his lower calves into the Achilles area. Sometimes his feet also feel cold but states this could be from the fact that his likes to keep the rooms cold. However he notes that these symptoms resolve when he gets up and moves. Pressure resolves. He has not noticed that his legs are more swollen. In fact he notes he feels much better with movement and even did a workout at [employer] a local gym. No history of DVT or PE Related Data Allergies Allergy/AdvReac Type Severity Reaction Status Date / Time lisinopril AdvReac Severe Cough Verified 08/27/24 00:25 Review of Systems Status of ROS: Reports: 10 or more systems reviewed and unremarkable except as noted in History and below Const: Denies: fever, chills or fatigue Eyes: Denies: change in vision, blurry vision or blind spots ENMT: Reports: nasal congestion (Improved); Denies: throat pain or neck pain Cardio: Reports: shortness of breath with exertion; Denies: chest pain, palpitations, swelling of feet/ankles or lightheadedness Resp: Reports: shortness of breath; Denies: cough GI: Reports: nausea; Denies: abdominal pain or vomiting : Reports: urinary frequency; Denies: painful urination or blood in urine Musculo: Denies: neck pain Neuro: Denies: headache Endo: Denies: fatigue Exam Narrative: Exam Narrative: Alert and oriented. No acute distress. Very well-spoken gentleman. External ears eyes nose clear. Head appears atraumatic. Mentation and speech normal. Heart with a regular rate and rhythm. Lungs are clear bilaterally. Abdomen is obese soft nontender. Lower extremities with scant peripheral edema but no calf tenderness and negative Jacky sign. Legs are warm. Const: Vital Signs, click to edit/add: Vital Signs - 24 hr 08/27/24 00:21 08/27/24 02:07 08/27/24 02:10 Temperature 96.9 F L Respiratory Rate 16 18 Blood Pressure [Ri ght Upper Arm] 175/102 H 172/102 H 145/117 H Pulse Oximetry 96 96 Oxygen Delivery Me thod Room Air Room Air 08/27/24 02:25 08/27/24 02:33 Temperature Respiratory Rate Blood Pressure [Ri ght Upper Arm] 140/88 H 143/90 H Pulse Oximetry Oxygen Delivery Me thod Documenting provider has reviewed patient's vital signs: yes Course Course ED Course: Differential diagnosis includes but is not limited to acute coronary event, PE, pneumonia, congestive heart failure, fluid overload, anxiety. At this time patient has no evidence of tachycardia in O2 sats are normal. No evidence of right heart strain on EKG to indicate we are dealing with PE. Patient describes a pressure in his calves and ankles when lying down but completely resolves when moving about. This does not describe DVT. Patient is active has not been immobilized or had history of DVT in the past. Initial blood pressure 175/102. Will continue to monitor. At this time patient is on triple antihypertensive therapy with nifedipine metoprolol had hydrochlorothiazide. Given the fact that he has noticed some increased shortness of breath with activity will check an EKG chemistry panel CBC troponin and proBNP. Given his urinary frequency and enlarged prostate will also check urinalysis. Chest x-ray is also ordered at this time. Reevaluation(s) Reevaluation #1: Reassuring laboratory values to include normal hemoglobin, white count, electrolyte panel, creatinine and magnesium. ProBNP is normal at 83, urinalysis without evidence of protein urea or UTI and troponin is negative. EKG also reassuring. Rechecking blood pressures at this time. Reevaluation #2: Patient noted to have repeat blood pressure of 143/90 and 140/88 when lying down. Chest x-ray shows mild pulmonary congestion no evidence of infiltrates. Other laboratory values are reassuring with normal creatinine magnesium potassium white count and negative troponin. Vital Signs Vital signs: Initial Vital Signs Temperature 96.9 F L 08/27/24 00:21 Temperature Source Temporal Artery Scan 08/27/24 00:21 Respiratory Rate 16 08/27/24 00:21 Blood Pressure 175/102 H 08/27/24 00:21 Blood Pressure Mean 126 H 08/27/24 00:21 Blood Pressure Position Sitting 08/27/24 00:21 Pulse Oximetry 96 08/27/24 00:21 Oxygen Delivery Method Room Air 08/27/24 00:21 Vital Signs Temperature 96.9 F L 08/27/24 00:21 Respiratory Rate 16 08/27/24 00:21 Blood Pressure 175/102 H 08/27/24 00:21 Pulse Oximetry 96 08/27/24 00:21 Oxygen Delivery Method Room Air 08/27/24 00:21 Temperature 96.9 F L 08/27/24 00:21 Respiratory Rate 18 08/27/24 02:07 Blood Pressure 143/90 H 08/27/24 02:33 Pulse Oximetry 96 08/27/24 02:07 Oxygen Delivery Method Room Air 08/27/24 02:07 Medications Administered Medications: Generic Name Dose Route Start Last Admin Trade Name Freq PRN Reason Stop Dose Admin Furosemide 20 mg 08/27/24 02:23 08/27/24 02:33 Furosemide 40 Mg Tablet PO 08/27/24 02:24 20 mg ONCE ONE Administration Medical Decision Making MDM Narrative Medical decision making narrative: 1. Hypertension-blood pressure is much improved when taken when lying down. patient noted to be on 3 medications hydrochlorothiazide 25 mg daily, nifedipine ER 60 mg daily and metoprolol 100 mg ER daily. Hydrochlorothiazide is likely maxed out as literature does not really show increased doses to 50 mg daily having a lot of effect on blood pressure control. Nifedipine could be increased to 90 mg daily and metoprolol up to 200 mg daily, but patient's heart rate is already at 66. Although proBNP is 83 patient's chest x-ray does show some mild pulmonary congestion. As this is been going on for a week and patient is absent of any chest pain visual symptoms abdominal pain or end-organ affects would like to give him a 1 time dose of Lasix and have him follow-up with his primary MD. I think this will take further evaluation and insight of the primary care physician in order to treat this gentleman. Fortunately his electrolyte panel and kidney function are within normal limits. Magnesium is normal at 2.1. Normally I would go ahead and treat right away but given the fact that it is 0200 hours if he takes the Lasix right now he will definitely be upper most of the night urinating. Instead, we will have him take it 1st thing in the morning and then call the [facility] to arrange an appointment with Dr. Stern. EKG is reassuring and troponin is negative. Blood pressures improved when lying flat. 2. Disposition-home at this time. Seek medical attention for onset of chest pain shortness of breath worsening symptoms. Suggest outpatient stress test and echocardiogram. Medical Records Medical records reviewed: Yes I reviewed the patient's medical records Lab Data Lab results reviewed: Yes I reviewed the patient's lab results Labs: Lab Results 08/27/24 08/27/24 08/27/24 Range/Units 00:57 01:10 01:48 WBC 8.71 (4.50-11.00) K/uL RBC 4.53 (4.30-5.90) m/uL Hgb 14.4 (13.5-17.5) gm/dL Hct 42.8 (37.0-53.0) % MCV 95 (80-100) fL MCH 32 (26-34) pg MCHC 34 (32-36) gm/dL RDW Coeff of Jorge 13.5 (11.5-15.5) % Plt Count 347 (140-440) K/uL Neut % (Auto) 64.4 (42.0-72.0) % Lymph % (Auto) 22.5 (20-44) % [place] % (Auto) 8.4 (0.0-11.0) % Eos % (Auto) 3.4 (0.0-7.0) % Baso % (Auto) 0.8 (0.0-3.0) % Neut # (Auto) 5.61 (1.7-7.0) K/uL Lymph # (Auto) 1.96 (0.90-2.90) K/uL [place] # (Auto) 0.70 (0.00-0.90) K/UL Eos # (Auto) 0.30 (0.00-0.50) K/uL Baso # (Auto) 0.07 (0.00-0.30) K/uL Abs Immat Gran (auto) 0.04 (0.00-0.30) K/uL Imm/Tot Granulo (auto) 0.5 % Sodium 140 (135-149) mmol/L Potassium 3.6 (3.6-5.1) mmol/L Chloride 103 (96-114) mmol/L Carbon Dioxide 27 (20-32) mmol/L Anion Gap 10 (7-15) mEq/L BUN 24 (7-30) mg/dL Creatinine 1.0 (0.5-1.5) mg/dL Estimated Creat Clear 69.91 Estimated GFR 78 ml/min Glucose 111 (60-115) mg/dL Calcium 9.7 (8.4-10.6) mg/dL Magnesium 2.1 (1.5-2.6) mg/dL NT-Pro-B Natriuret Pep 83 pg/mL Urine Color Yellow (Yellow) Urine Appearance Clear (Clear) Urine pH 5.5 (5.0-8.5) Ur Specific [place] 1.025 (1.000-1.030) Urine Protein Negative (Negative) Urine Glucose (UA) Negative (Negative) Urine Ketones Negative (Negative) Urine Blood Negative (Negative) Urine Nitrite Negative (Negative) Urine Bilirubin Negative (Negative) Urine Urobilinogen 0.2 (0.2-1.0) Ur Leukocyte Esterase Negative (Negative) Urine RBC 0-2 (0-2) Urine WBC 0-2 (0-5) Ur Squamous Epith Cells Few (None-Few) Urine Bacteria Few A (None) Urine Mucus Few A (None) POC Troponin I 0.01 (0.01-0.04) ng/ml Imaging Data Chest x-ray: Attestation: I have reviewed the pertinent imaging results. My impression: I do not note any acute infiltrate Radiologist's impression: Cardiomediastinal silhouette grossly within normal limits. Mild pulmonary vascular congestion. No definite confluent airspace opacity. No pleural effusion or pneumothorax. No acute osseous abnormality. ECG Data Attestation: I personally reviewed and interpreted this ECG as follows: Interpretation: EKG by my read shows sinus rhythm at a rate of 66. I do not note any acute ST or T-wave changes. QT and ME intervals within normal limits. Discharge Plan Discharge Clinical Impression: Hypertension Qualifiers: Hypertension type: unspecified Qualified Code(s): I10 - Essential (primary) hypertension Patient Disposition: Home, Self-Care Condition: Unchanged Additional Instructions: Suggest a 1 time dose of Lasix in addition to your other medications tomorrow morning. You may take it this evening but would likely be up most of the night having to use the bathroom. Follow-up with your primary MD for further evaluation. Nifedipine can be increased to 90 mg extended release daily. Metoprolol can be increased to 100 mg twice daily but your heart rate is already at 66 and this would likely decrease that further. Hydrochlorothiazide can be increased to 50 mg daily but the literature does not support that it really helps decrease the blood pressure be on 25 mg. These are things that your primary care physician will be evaluating. Please see Dr. Stern this week. Consider stress test with echocardiogram for further evaluation of the heart. Return to the emergency room for blood pressure that is still increasing, you started experiencing headache visual changes chest pain vomiting or worsening symptoms. Activity Level: No Restrictions Discharge Diet: Regular Follow Up/Referrals: Rohit Stern MD [Primary Care Provider] - Stand Alone Forms: [email or web address] Info Instructions
--- NOTE | 2024-08-27 00:57 | CRLHL7_ITS ---
For Patients: As a result of the Century Cures Act, medical imaging exams and procedure reports are released immediately into your electronic medical record. You may view this report before your referring provider. If you have questions, please contact your health care provider. Indication: Hypertension. Technique: Chest 1 view. Comparison: None. Findings/Impression: Cardiomediastinal silhouette grossly within normal limits. Mild pulmonary vascular congestion. No definite confluent airspace opacity. No pleural effusion or pneumothorax. No acute osseous abnormality. Dictated by Kulwant Durán MD @ 08/27/2024 1:15:38 AM (Electronically Signed)
--- OUTSIDE RECORDS SUMMARY | 2024-08-27 01:13 | XMS_ITS | Clinical Summary ---
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 16 [...] Department Care Team Description 08/24/2024 Nurse Triage [facility] [address] [place] [address] Rohit Stern MD High Blood Pressure 08/22/2024 11:00 AM CDT Nurse/Clinic Staff Only [facility] [address] [place] [address] Blood Pressure 08/22/2024 Telephone [facility] [address] [place] [address] Rohit Stern MD Blood Pressure 08/22/2024 Travel 08/07/2024 Telephone [facility] [address] [place] [address] Rohit Stern MD Medication Management 07/18/2024 9:35 AM COMPENSATION COORDINATOR Office Visit [facility] [address] [place] [address] Votel, Rohit Acosta MD Medication Management (Wants labs, diuretic does not work for him, wants to discuss wegovy) 07/18/2024 Travel 07/13/2024 Travel 07/13/2024 Refill [facility] [address] [place] [address] Votel, Rohit Acosta MD Refill Request (Microlet Lancet) from Last 3 Months Immunizations Immunization Administration Dates Next Due COVID-19 vaccine ([employer] 30mcg/0.3mL) MD STEFANOV 04/01/2021,08/19/2020,07/29/2020 Influenza A (H1N1), [...] Sex Assigned at Male 05/23/2020 6:44 PM COMPENSATION COORDINATOR Legal Sex Male 6:36 AM COMPENSATION COORDINATOR Gender Identity Male 05/23/2020 6:44 PM COMPENSATION COORDINATOR Sexual Orientation Straight 05/23/2020 6: 44 PM COMPENSATION COORDINATOR Occupation Industry Job Start Date Job End [...] (334 lb 8 oz) 07/18/2024 9:49 AM COMPENSATION COORDINATOR Height 181.8 cm (5' 11.58) 07/18/2024 9:[address] Body Mass Index 45.91 07/18/2024 9:49 AM COMPENSATION COORDINATOR Plan of Treatment Upcoming Encounters Date Type Department Care Team (Late st Contact Info) Description 10/24/2024 10:00 AM CDT Orders Only [facility] [address] [place] [address] Lab, [facility] Maintenance Due Date Last [...] WITH AUTO DIFFERENTIAL Routine 07/18/2024 11:02 AM COMPENSATION COORDINATOR Essential hypertension BASIC METABOLIC PANEL Routine 07/18/2024 11:02 AM COMPENSATION COORDINATOR Essential hypertension PSA TOTAL Routine 07/18/2024 11:02 AM COMPENSATION COORDINATOR Malignant neoplasm of prostate (HC) HEMOGLOBIN A1C MONITORING (POCT) Routine 07/18/2024 11:01 AM COMPENSATION COORDINATOR Prediabetes ANTI HCV Routine 04/26/2016 10:22 AM COMPENSATION COORDINATOR Need for hepatitis C screening test from Last 3 Months or Most Recently Relevant to Health Maintenance Results * CBC AND DIFFERENTIAL (07/18/2024 11:02 AM COMPENSATION COORDINATOR) WHITE BLOOD CELL COUNT 9.2 3.8 - [...] BLOOD SPECIMEN / Unknown 07/18/2024 11:02 AM COMPENSATION COORDINATOR 07/18/2024 11:02 AM COMPENSATION COORDINATOR Rohit Stern MD HEMATOLOGY Final Re sult Performing Organization Address [facility] Co de Phone Number [employer] [facility] [address] [place] [address], [place] [phone] [facility] [address] [place] [address] * (ABNORMAL) PSA TOTAL (DIAG OR SCREEN) (07/18/2024 11:02 AM COMPENSATION COORDINATOR) PSA, TOTAL 4.83(H) < OR = 4.00 ng/mL [facility] Comment: The total PSA value from this assay system is standardized against the WHO standard. The test result will be approximately 20% lower when compared to the equimolar-standardized total PSA ([place]vin [place]). Comparison of serial PSA results should be interpreted with this fact in mind. This test was performed using the Siemens chemiluminescent method. Values obtained from different assay methods cannot be used interchangeably. PSA levels, regardless of value, should not be interpreted as absolute evidence of the presence or absence of disease. Blood BLOOD SPECIMEN / Unknown 07/18/2024 11:02 AM COMPENSATION COORDINATOR 07/18/2024 11:02 AM COMPENSATION COORDINATOR Rohit Stern MD CHEMISTRY Final Re sult Performing Organization Address [facility] Co de Phone Number [employer] [facility] [address] [facility] [place] [address], [place] [phone] [facility] [address] [place] [address] * (ABNORMAL) BASIC METABOLIC PANEL (07/18/2024 11:02 AM COMPENSATION COORDINATOR) GLUCOSE 107(H) 65 - 99 mg/dL [facility] Comment: Fasting reference interval For someone [...] BLOOD SPECIMEN / Unknown 07/18/2024 11:02 AM COMPENSATION COORDINATOR 07/18/2024 11:02 AM COMPENSATION COORDINATOR Rhoit Stern MD CHEMISTRY Final Re sult [employer] [facility] [address] [place] [address], [facility] [address] [place] [phone] * POCT Hemoglobin A1C Monitoring (07/18/2024 11:01 AM COMPENSATION COORDINATOR) POC HEMOGLOBIN A1C 5.9 <6.0 % OF TOTAL HGB [facility] Comment: Any point of care results exhibiting inconsistency with the patient's clinical status should be repeated using a different testing method. Blood BLOOD SPECIMEN / Unknown 07/18/2024 11:01 AM COMPENSATION COORDINATOR 07/18/2024 11:01 AM COMPENSATION COORDINATOR Rohit Stern MD CHEMISTRY Final Re sult [facility] [address] [place] [address], [facility] [address] [place] [address] * ANTI HCV (04/26/2016 10:22 AM COMPENSATION COORDINATOR) HEPATITIS C ANTIBODY Non-Reacti ve Non-Reacti ve 04/26/2016 5:59 PM COMPENSATION COORDINATOR [facility] Blood BLOOD SPECIMEN / Unknown Butterfly / Unknown 04/26/2016 10:22 AM COMPENSATION COORDINATOR 04/26/2016 10:22 AM COMPENSATION COORDINATOR Narrative [facility] - 04/26/2016 5:59 PM COMPENSATION COORDINATOR Antibodies to HCV not detected; does not exclude the possibility of exposure to HCV. us Rohit Stern MD SEND OUTS Final Re sult [facility] [address] [place] [address], [place] from Last 3 Months or Most Recently Relevant to Health Maintenance Insurance MEDICARE PART B HB ONLY [place] ONLY [place] MEDICARE ADVANTAGE MR Advance Directives * Full Code (Latest Code Status on File) Date Activated Date Inactivated Comments 08/24/2018 10:48 AM 08/24/2018 2:36 PM Care Teams Portable Feed Mill Operator Relationship Specialty Start Date End Date Votel, Rohit Acosta MD [address] [place] [address] PCP - General 06/11/04 Prieto Larsen MD [address] [place] [address] Urology Surgery - Urology 03/30/11 Jose Israel MD [address] [place] [address] Rheumatology Rheumatology 05/26/20
[2024-08-27 01:30] LABS: Basophils Absolute Auto 0.07 K/uL (0.00-0.30); Basophils Percent Auto 0.8 % (0.0-3.0); Eosinophils Percent Auto 3.4 % (0.0-7.0); Hematocrit 42.8 % (37.0-53.0); Hemoglobin* 14.4 gm/dL (13.5-17.5); Immature Granulocytes Abs Auto 0.04 K/uL (0.00-0.30); Immature Granulocytes Pct Auto 0.5 %; Lymphocytes Absolute Auto 1.96 K/uL (0.90-2.90); Lymphocytes Percent Auto 22.5 % (20-44); Mean Corpuscular HGB Conc 34 gm/dL (32-36); Mean Corpuscular Hemoglobin 32 pg (26-34); Mean Corpuscular Volume 95 fL (80-100); Monocytes Percent Auto 8.4 % (0.0-11.0); Neutrophils Absolute Auto 5.61 K/uL (1.7-7.0); Neutrophils Percent Auto 64.4 % (42.0-72.0); Platelet Count* 347 K/uL (140-440); RDW Coefficient of Variation % 13.5 % (11.5-15.5); Red Blood Count 4.53 m/uL (4.30-5.90); White Blood Count* 8.71 K/uL (4.50-11.00)
[2024-08-27 01:31] LABS: Slide Review Reflex No
[2024-08-27 01:35] LABS: Troponin, Point-of-Care* 0.01 ng/ml (0.01-0.04)
[2024-08-27 01:42] LABS: Chloride* 103 mmol/L (96-114)
[2024-08-27 01:43] LABS: Potassium* 3.6 mmol/L (3.6-5.1); Sodium* 140 mmol/L (135-149)
[2024-08-27 01:46] LABS: Anion Gap 10 mEq/L (7-15); Blood Urea Nitrogen* 24 mg/dL (7-30); Calcium* 9.7 mg/dL (8.4-10.6); Carbon Dioxide* 27 mmol/L (20-32); Est. Creatinine Clearance* 69.91; Estimated Glomerular Filt Rate 78 ml/min; Glucose* 111 mg/dL (60-115); Magnesium* 2.1 mg/dL (1.5-2.6)
[2024-08-27 01:54] LABS: Appearance Urine Clear (Clear); Bilirubin Urine Negative (Negative); Blood Urine Negative (Negative); Color Urine Yellow (Yellow); Glucose Urine Negative (Negative); Ketones Urine Negative (Negative); Leukocyte Esterase Urine Negative (Negative); Nitrite Urine Negative (Negative); Protein Urine Negative (Negative); Specific Gravity Urine 1.025 (1.000-1.030); Urobilinogen Urine 0.2 (0.2-1.0); pH Urine 5.5 (5.0-8.5)
[2024-08-27 01:56] LABS: NT Pro B Type NatriureticPept* 83 pg/mL
[2024-08-27 02:02] LABS: Bacteria Urine Few; Mucus Urine Few; RBC Urine 0-2 (0-2); Squamous Epithelial Cell Urine Few (None-Few); WBC Urine 0-2 (0-5)
[2024-08-27 02:07] VITALS: BP 172/102; RESP 18; O2SAT 96
[2024-08-27 02:10] VITALS: BP 145/117
[2024-08-27 02:25] VITALS: BP 140/88
[2024-08-27 02:33] VITALS: BP 143/90
[2024-08-27] MEDS: FUROSEMIDE 40 MG TABLET 20 MG PO (02:33)
== END 2024-08-27 02:46 | disposition home or self-care (01) ==
PROVIDERS: Emergency Provider Family Medicine; PCP Family Medicine
DX: I10 Essential (primary) hypertension (principal); R06.02 Shortness of breath; R60.9 Edema, unspecified; Z79.899 Other long term (current) drug therapy
CPT/HCPCS: 36415; 71045; 80048; 81001; 83735; 83880; 84484; 85025; 87086; 93005; 99284; 99285; A9270